=== PATIENT | female | born 1945 | race Caucasian/White ===

== ENCOUNTER → 2019-01-03 | Outpatient (REF) | payer MEDICARE ==
[~2019-01-03] VITALS: Ht 154.9 cm; Wt 59.9 kg
[~2019-01-03] MED LIST: ADVAIR DISK2 IN; ADVAIR HF1 IN; ALBUTEROL0.5 % IN; AZITHROMYCIN500 MG PO; ELIQUIS5 MG PO; LEVAQUIN500 MG PO; METOPROLOL SUCC25 MG PO; MONTELUKAST SOD10 MG PO; PREDNISONE20 MG PO; PROAIR HFA IN; PROAIR HFA108 MCG/AC; PROTONIX40 M2 PO; SPIRIVA HANDIHALER IN; TRELEGY ELLIPTA1 AER PO; TRIAMCINOLON0.11 EX; ZOFRAN ODT4 MG PO
[2019-01-03 11:48] VITALS: BP 112/74
== END | disposition home or self-care (01) ==
LOC: PO 10:41 → ORM 10:45
PROVIDERS: ATTEND Surgery
DX: Z01.818 Encounter for other preprocedural examination (principal); R19.5 Other fecal abnormalities; J44.9 Chronic obstructive pulmonary disease, unspecified; I10 Essential (primary) hypertension; Z86.79 Personal history of other diseases of the circulatory system; Z96.612 Presence of left artificial shoulder joint; Z90.2 Acquired absence of lung [part of]; Z97.2 Presence of dental prosthetic device (complete) (partial)

== ENCOUNTER 2019-01-18 06:27 | Day surgery (SDC) | payer MEDICARE ==
[2019-01-18 08:36] VITALS: BP 132/59
== END 2019-01-18 08:40 | disposition home or self-care (01) ==
LOC: ENDO 06:27 → ORM 08:45
PROVIDERS: ATTEND Surgery
PROC: 0DJD8ZZ Inspection of Lower Intestinal Tract, Via Natural or Artificial Opening Endoscopic (ICD-10-PCS; principal; 2019-01-18)
DX: R19.5 Other fecal abnormalities (principal); J44.9 Chronic obstructive pulmonary disease, unspecified; Z99.81 Dependence on supplemental oxygen

== ENCOUNTER 2020-10-17 14:52 | Emergency (ER) | payer MEDICARE ==
[~2020-10-17] VITALS: Ht 154.9 cm; Wt 60.0 kg
[2020-10-17 17:08] VITALS: BP 117/57
[2020-10-17] MEDS ORDERED: KEFLEX500 M1 PO (17:40)
== END 2020-10-17 18:01 | disposition home or self-care (01) ==
LOC: ED 14:52
PROC: 0HQLXZZ Repair Left Lower Leg Skin, External Approach (ICD-10-PCS; principal; 2020-10-17)
DX: S81.012A Laceration without foreign body, left knee, initial encounter (principal); I48.91 Unspecified atrial fibrillation; J44.9 Chronic obstructive pulmonary disease, unspecified; W10.9XXA Fall (on) (from) unspecified stairs and steps, initial encounter; Y92.009 Unspecified place in unspecified non-institutional (private) residence as the place of occurrence of the external cause; Z79.01 Long term (current) use of anticoagulants

== ENCOUNTER 2020-10-24 09:23 | Emergency (ER) | payer MEDICARE ==
[~2020-10-24] VITALS: Ht 154.9 cm; Wt 65.0 kg
[~2020-10-24 09:23] MED LIST changes: +KEFLEX500 M1 PO
[2020-10-24] MEDS ORDERED: KEFLEX500 MG PO (09:45)
[2020-10-24] MEDS ORDERED: BACTROBAN TOP (09:45)
[2020-10-24 09:48] VITALS: BP 147/70
== END 2020-10-24 09:55 | disposition home or self-care (01) ==
LOC: ED 09:23
DX: S81.012D Laceration without foreign body, left knee, subsequent encounter (principal); X58.XXXD Exposure to other specified factors, subsequent encounter; I48.91 Unspecified atrial fibrillation; J44.9 Chronic obstructive pulmonary disease, unspecified

== ENCOUNTER 2022-12-01 08:30 | Emergency (ER) | payer MEDICARE ==
[~2022-12-01] VITALS: Ht 154.9 cm; Wt 59.4 kg
[~2022-12-01 08:30] MED LIST changes: +BACTROBAN TOP; +KEFLEX500 MG PO
[2022-12-01 08:43] VITALS: BP 156/77
[2022-12-01 09:00] VITALS: BP 172/83
[2022-12-01 09:11] LABS: ALBUMIN 4.1 g/dL (3.2-5.0); BILIRUBIN, TOTAL 0.5 mg/dL (0.0-1.4); CREATININE 1.1 mg/dL (0.5-1.0); POTASSIUM 4.5 mmol/l (3.5-5.1); TOTAL PROTEIN 6.9 g/dL (6.3-8.2)
[2022-12-01 09:17] LABS: BASO% 0.7 % (0-3); EOS% 4.2 % (0-8); HEMATOCRIT 45.4 % (37.0-47.0); HEMOGLOBIN 14.5 g/dl (12.0-16.0); IMMATURE GRANULOCYTES 0.1 % (0.0-5.0); LYMPH% 44.3 % (15-41); MEAN CORPUSCULAR HGB 28.4 pG CALC (26.0-32.0); MEAN CORPUSCULAR HGB CONC 31.9 g/dL CAL (32.0-36.0); MONO% 7.8 % (2-13); NEUT# 3.13 thou/uL (2.00-7.15); NEUT% 42.9 % (42-76); RED BLOOD COUNT 5.1 mill/uL (4.20-5.60); RED CELL DISTRI WIDTH 13.4 % (11.5-15.5)
[2022-12-01 09:30] VITALS: BP 134/69
[2022-12-01 09:42] LABS: TSH, 3RD GENERATION 4.33 uIU/mL (0.47 - 4.68)
[2022-12-01 10:00] VITALS: BP 152/131
[2022-12-01 10:01] VITALS: BP 153/68
== END 2022-12-01 10:10 | disposition home or self-care (01) ==
LOC: ED 08:30
PROVIDERS: Family Medicine
DX: R00.2 Palpitations (principal); I10 Essential (primary) hypertension; I48.91 Unspecified atrial fibrillation; J44.9 Chronic obstructive pulmonary disease, unspecified; Z99.81 Dependence on supplemental oxygen